=== PATIENT | male | born 1965 | race Caucasian/White ===

== ENCOUNTER → 2018-11-28 | Outpatient (CLI) | payer BC, OTHER ==
--- NOTE | 2018-11-29 12:37 | Diagnostic Imaging Report ---
Exam: Nuclear medicine thyroid imaging and uptake. Date: November 29, 2018. Indication: 53-year-old male, fatigue. Comparison: None. Findings: 199 ?Ci of I-123 was administered. Subsequent scintigraphic images of the thyroid were obtained in multiple projections. 6 and 24-hour thyroid uptake rise were obtained. 6 hour thyroid uptake is calculated at 12.8%. 24-hour thyroid uptake is calculated at 29.8%. Normal range for uptake at 4-6 hours (5-20%). Normal range of uptake at 24 hours (10-35%). There is diffuse radiotracer uptake throughout the right and left lobes of the thyroid. There is no identified radiotracer avid or photopenic nodule. Impression: 1. 1. Normal 6 and 24 hour thyroid uptake values. 2. No radiotracer avid or photopenic thyroid nodule. Dictated by: Dictated on workstation # [id number]
== END ==
LOC: CARD 11:12
PROVIDERS: ATTEND Nurse Practitioner Family
DX: R53.83 Other fatigue (principal)
CPT/HCPCS: 78014